=== PATIENT | female | born 1935 | race Caucasian/White ===

== ENCOUNTER 2017-05-19 12:32 | Outpatient (CLI) | payer OTHER ==
[2014-10-02 15:29] VITALS: BMI 32.2
--- NOTE | 2017-05-19 14:29 | DEXA ---
EXAM: Bone densitometry. History: Osteoporosis. Findings: Evaluation of the lumbar spine reveals a total bone mineral density of 1.133 grams per centimeter sq uared with T-score of negative 0.4 Evaluation of the left hip reveals a total bone mineral density of 0.848 grams per centimeter square d with T-score of negative 1.3. Evaluation of the right hip reveals a total bone mineral density of 0.872 grams per centimeter squar ed with T-score of negative 1.1 Impression: 1. Normal bone mineral density of the lumbar spine. 2. Osteopenia of both hips.
== END 2017-05-19 12:33 | disposition home or self-care (01) ==
LOC: RAD 12:32
PROVIDERS: ATTEND Internal Medicine
DX: M81.0 Age-related osteoporosis without current pathological fracture (principal)

== ENCOUNTER 2017-06-19 10:48 | Outpatient (CLI) ==
[2014-10-02 15:29] VITALS: BMI 32.2
[2017-06-19] MEDS ORDERED: PROLIA SUBCUT STA (11:09)
[2017-06-19 11:10] VITALS: BP 132/74; TEMP 98
== END 2017-06-19 10:49 | disposition home or self-care (01) ==
LOC: OPMED 10:48
PROVIDERS: ATTEND Internal Medicine
DX: M81.0 Age-related osteoporosis without current pathological fracture (principal)
CPT/HCPCS: 96372